=== PATIENT | female | born 1980 | race Caucasian/White ===

== ENCOUNTER 2019-08-22 20:26 | Emergency (ER) | payer OTHER, SELFPAY ==
--- NOTE | ~2019-08-22 | XR_ITS ---
EXAMINATION: XR chest 2V 08/22/2019 21:48 INDICATION: Chest pain and tachycardia PROCEDURE: 2 view chest COMPARISON: 08/09/2013 and 09/01/2009 FINDINGS: The lungs are clear. The cardiomediastinal silhouette is within normal limits. There are no pleural effusions. There is no pneumothorax suspected. IMPRESSION: 1: NO ACUTE CARDIOPULMONARY DISEASE. Reviewed, dictated and finalized at location A.
--- NOTE | ~2019-08-22 | CT_ITS ---
EXAMINATION: CTA chest PE protocol DATE: 08/22/2019 22:44 CDT INDICATION: Chest pain. Tachycardia. TECHNIQUE: Computed tomographic angiography (CTA) of the chest was performed with 100 mL Omnipaque-35 0 intravenous contrast. The dose-length product was 1031.17 mGy-cm. Maximum intensity projection 3D-r econstructions of the aorta and other arteries were constructed by the technologist on a separate wor kstation. Automated exposure control and iterative reconstruction technique were employed. COMPARISON: Chest dated 08/22/2019 FINDINGS: The study is technically adequate without evidence for pulmonary embolism. No evidence for aortic aneurysm or dissection. Cardiomegaly. No significant pleural or pericardial ef fusion. No thoracic lymphadenopathy. Shallow inspiration with crowding of the pulmonary vasculature. No focal airspace consolidation. There is a 6 mm pleural-based right lower lobe nodule. There is a 9 mm fissural nodule on the left. Status post cholecystectomy with expected prominence of the bile duct s. No evidence for focal consolidation to suggest pneumonia. No acute osseous abnormality. IMPRESSION: 1. No evidence for pulmonary embolism. No acute cardiopulmonary disease. 2: Bilateral pulmonary nodules including 6 mm right lower lobe pleural-based nodule in 9 mm fissural nodule. Follow-up low dose CT chest in 6 months recommended. Reviewed, dictated and finalized at location A. IMPRESSION: 1. No evidence for pulmonary embolism. No acute cardiopulmonary disease. 2: Bilateral pulmonary nodules including 6 mm right lower lobe pleural-based no dule in 9 mm fissural nodule. Follow-up low dose CT chest in 6 months recommend ed.
--- NOTE | 2019-08-22 20:35 | ED.ARRPALP ---
HPI - Arrhythmia/Palpitations General Chief Complaint: Arrhythmia/Palpitations Stated Complaint: high heart rate Time Seen by Provider: 08/22/19 20:35 Source: patient Mode of arrival: ambulatory Limitations: no limitations History of Present Illness HPI narrative: 39-year-old woman comes in today complaining of a fast heart rate and chest pain which started approximately 7:00 p.m. She states that her friends pulse oximeter read a heart rate of 190. She had diaphoresis but no lightheadedness, syncope, vomiting, nausea, or shortness of breath. Patient states that she was at rest at the time of onset. States she was treated for palpitations approximately 10 years ago. she currently takes propranolol all for migraine prophylaxis. She is a smoker. Jonna [id number] complaint: rapid heart beat Onset (ago): hour(s) (1.5) Duration: constant Severity: severe Context: occurred during rest Associated symptoms: chest pain Related Data Home Medications Medication Instructions Recorded Confirmed amitriptyline 75 mg PO DAILY 08/22/19 08/22/19 ascorbic acid (vitamin C) [Vitamin 500 mg PO BID 08/22/19 08/22/19 C] aspirin [Adult Low Dose Aspirin] 81 mg PO DAILY 08/22/19 08/22/19 buprenorphine HCl [Belbuca] 450 mcg BUCCAL DAILY 08/22/19 08/22/19 calcium carbonate-vitamin D3 1 cap PO BID 08/22/19 08/22/19 [Calcium 600 + D(3)] cetirizine [Zyrtec] 10 mg PO DAILY 08/22/19 08/22/19 diclofenac sodium 1 % TOPICAL PRN PRN 08/22/19 08/22/19 diclofenac sodium 75 mg PO BID 08/22/19 08/22/19 docusate sodium [Colace] 100 mg PO DAILY 08/22/19 08/22/19 fluticasone propionate [Flonase 1 spray INTRANASAL DAILY 08/22/19 08/22/19 Allergy Relief] galcanezumab-gnlm [Emgality Pen] 120 mg SUBCUT MONTHLY 08/22/19 08/22/19 ipratropium bromide 1 spray INTRANASAL DAILY 08/22/19 08/22/19 methocarbamol 750 mg PO TID 08/22/19 08/22/19 mirtazapine 15 mg PO HS 08/22/19 08/22/19 montelukast 10 mg PO DAILY 08/22/19 08/22/19 hslwzydvcuws-kjl-uqyx-FA-vit K 1 tablet PO DAILY 08/22/19 08/22/19 [Adults Multivitamin] omeprazole magnesium [Prilosec OTC] 20 mg PO DAILY 08/22/19 08/22/19 oxycodone-acetaminophen 1 tablet PO TID 08/22/19 08/22/19 polyethylene glycol 3350 [Miralax] 17 g PO DAILY 08/22/19 08/22/19 prochlorperazine maleate 10 mg PO DAILY PRN 08/22/19 08/22/19 propranolol 80 mg PO BID 08/22/19 08/22/19 sumatriptan succinate [Imitrex] 100 mg PO ONCE 08/22/19 08/22/19 topiramate [Trokendi XR] 100 mg PO DAILY 08/22/19 08/22/19 Allergies Allergy/AdvReac Type Severity Reaction Status Date / Time bee venom protein (honey bee) Allergy Unknown Swelling Verified 08/22/19 20:38 Bumble Bee Allergy Unknown SWELLING Uncoded 02/21/17 08:46 Honey Bee Allergy Unknown SWELLING Uncoded 02/21/17 08:46 Mosquito Allergy Unknown SWELLING Uncoded 02/21/17 08:46 Wasp Allergy Unknown SWELLING Uncoded 02/21/17 08:46 Review of Systems Constitutional: Constitutional: Denies chills, Denies fatigue, Denies fever(s) and Denies weakness Eyes: Eyes: Denies change in vision and Denies photophobia ENT: Denies dysphagia, Denies nasal congestion and Denies sore throat Cardiovascular: Cardiovascular: Reports as per HPI, Reports chest pain, Reports rapid heart rate and Denies radiating jaw, neck or arm pain Respiratory: Respiratory: Denies chest congestion, Denies cough, Denies dyspnea and Denies wheezing Gastrointestinal: Gastrointestinal: Denies abdominal pain, Denies nausea and Denies vomiting Genitourinary: Genitourinary: Denies nocturia and Denies dysuria Musculoskeletal: Musculoskeletal: Reports back pain ( Chronic), Denies joint swelling and Denies muscle cramps Integumentary/Breasts: Skin/Breast: Denies pruritus, Denies erythema and Denies rash Neurologic: Denies vertigo, Denies dizziness, Denies syncope, Denies headache(s) and Denies focal weakness Endocrine: Endocrine: Denies polydipsia and Denies polyuria Hematologic/Lymphatic: Hematologic/Lymphatic: Denies easy bl
--- NOTE | 2019-08-22 20:37 | ECG_ITS ---
Measurements Intervals [place] Rate: 110 P: DC: 0 QRS: 56 QRSD: 106 T: 32 QT: 334 QTc: 452 Interpretive Statements SINUS TACHYCARDIA BASELINE ARTIFACT- AVR, AVL, AVF, V1, V5-V6 ABNORMAL ECG Electronically Signed On 08-23-2019 7:54:18 CDT by Jack Clement D.O.
[2019-08-22 20:39] VITALS: BP 140/81; PULSE 111; RESP 26; O2SAT 100
[2019-08-22 21:08] LABS: Basophils Absolute Auto 0.04 K/mm3 (0.00-0.10); Basophils Percent Auto 0.5 % (0.0-1.0); Eosinophils Absolute Auto 0.24 K/mm3 (0.02-0.50); Eosinophils Percent Auto 3.2 % (1.0-6.0); Hematocrit 38.5 % (35.0-49.0); Hemoglobin 13.1 g/dL (12.0-15.0); Immature Granulocyte Absolute 0.03 K/mm3 (0.00-0.00); Immature Granulocyte Percent A 0.4 % (0.0-0.0); Lymphocytes Absolute Auto 2.02 K/mm3 (1.10-4.50); Lymphocytes Percent Auto 26.7 % (18.0-42.0); Mean Corpuscular Hemoglobin 31.1 pg (27.0-31.0); Mean Corpuscular Volume 91.4 fL (78.0-102.0); Mean Platelet Volume 10.1 fl (9.2-11.8); Monocytes Absolute Auto 0.41 K/mm3 (0.10-0.90); Monocytes Percent Auto 5.4 % (2.0-11.0); Neutrophils Absolute Auto 4.8 K/mm3 (1.7-7.2); Neutrophils Percent Auto 63.8 % (50.0-70.0); Platelet Count Result 249 K/mm3 (150-420); Red Blood Count 4.21 M/mm3 (4.20-5.40); Red Cell Distribution Width 12.2 % (11.6-14.4); White Blood Count 7.6 K/mm3 (4.8-10.8)
[2019-08-22 21:13] LABS: Add Urine Microscopic? YES; Appearance Urine Clear (Clear); Bilirubin Urine Negative (Negative); Blood Urine Negative (Negative); Color Urine Yellow (Yellow); Glucose Urine UA Negative (Negative); Ketones Urine Trace (Negative); Leukocyte Esterase Ur Negative LEU/UL (Negative); Nitrate Urine Negative (Negative); Protein Urine Negative (Negative); Urobilinogen Urine 0.2 mg/dL (0.2-1.0)
[2019-08-22 21:16] LABS: Prothrombin Time 10.3 Seconds (9.64-11.0)
[2019-08-22 21:21] LABS: RBC Urine 0-2 /hpf (0-2); Squamous Epithelial Cell Urine Rare /hpf (Few); WBC Urine 0-3 /hpf (0-3)
[2019-08-22 21:22] LABS: D Dimer 0.73 mg/L (0.19-0.50)
[2019-08-22] MEDS: ASPIRIN 81 MG CHEWABLE TABLET 324 MG PO (21:25)
[2019-08-22 21:27] LABS: Troponin I 0.05 ng/mL (0.00-0.056)
[2019-08-22 21:27] LABS: Alanine Aminotransferase 62 U/L (14-59); Albumin Level 3.7 g/dL (3.4-5.0); Alkaline Phosphatase 80 U/L (46-116); Anion Gap 16.3 mmol/L (7-16); Aspartate Amino Transferase 41 U/L (15-37); Bilirubin,Total 0.5 mg/dL (0.00-1.00); Blood Urea Nitrogen 9 mg/dL (7-18); Calcium 8.2 mg/dL (8.5-10.1); Carbon Dioxide 21 mmol/L (21-32); Chloride 106 mmol/L (98-108); Estimated Glomerular Filt Rate > 60; Glucose 119 mg/dL (70-99); Osmolality Calculated 289 mOsm/kg (285-295); Potassium 3.3 mmol/L (3.5-5.1); Sodium 140 mmol/L (136-145); Total Protein 6.9 g/dL (6.4-8.2)
[2019-08-22 21:41] LABS: Partial Thromboplastin Time 25.2 SEC (22.3-31.6)
[2019-08-22 22:09] VITALS: BP 113/67; PULSE 99; RESP 16; O2SAT 100
[2019-08-22] MEDS: SODIUM CHLORIDE 0.9% IV 1,000 ML 999 ML IV CONT (22:27)
[2019-08-22 22:40] VITALS: BP 121/85; PULSE 90; RESP 16; TEMP 36.6; O2SAT 100
[2019-08-22 23:29] VITALS: BP 111/70; PULSE 88; RESP 16; TEMP 36.7; O2SAT 100
== END 2019-08-22 23:31 | disposition home or self-care (01) ==
PROVIDERS: Emergency Provider Emergency Medicine; PCP Internal Medicine
DX: R00.0 Tachycardia, unspecified (principal); R07.9 Chest pain, unspecified
CPT/HCPCS: 36415; 71046; 71275; 80053; 81001; 84484; 85025; 85380; 85610; 85730; 93005; 96360; 99284; A9270; J7030; Q9965